=== PATIENT | male | born 1950 | race Caucasian/White ===

== ENCOUNTER → 2016-08-23 | Outpatient (CLI) | payer OTHER ==
[~2016-08-23] MED LIST: ASPI81TA28 PO; ATOR-22 PO; CITA20TA9 PO; LISI-725 PO; OPTIRAY 320 IV PRN
--- NOTE | 2016-08-23 12:54 | DIAGNOSTIC IMAGING REPORT ---
CT SCAN OF THE PELVIS WITH IV CONTRAST CLINICAL HISTORY: Prostate cancer. COMPARISON STUDY: No priors. TECHNIQUE: Following the IV administration of 119 cc of Optiray 320, CT scan of the pelvis is performed from the pelvic inlet to the proximal femora. Images are reviewed in the axial, sagittal, and coronal planes. IV contrast was administered without complication CT DOSE: 551.74 mGycm FINDINGS: The prostate gland is normal in size and heterogeneous in attenuation. No discrete mass lesion is seen. The bladder is normal as visualized. The seminal vesicles are unremarkable. Surgical clips are noted along the spermatic cord bilaterally. The visualized small bowel and colon are normal in caliber. A normal appendix is identified. There is moderate diverticulosis of the imaged left colon without CT evidence of acute diverticulitis. There is no iliac chain, pelvic sidewall, or inguinal lymphadenopathy. The iliac vessels are patent. There is mild atherosclerotic calcification of the visualized abdominal aorta. The bony pelvis is intact. No lytic or blastic bony lesions are identified. IMPRESSION: 1. The prostate gland is heterogeneous. No definite mass lesion is identified by CT. 2. There is no evidence of metastatic disease in the pelvis. Electronically signed by: Aman Rod M.D. 08/23/2016 12:52 PM Dictated Date/Time: 08/23/2016 12:47 PM
--- NOTE | 2016-08-23 13:26 | DIAGNOSTIC IMAGING REPORT ---
NUCLEAR MEDICINE WHOLE-BODY BONE SCAN CLINICAL HISTORY: Prostate carcinoma COMPARISON STUDY: CT scan the pelvis dated 08/23/2016 FINDINGS: The patient was injected with 26.1 mCi of technetium 99m MDP. Three-hour delayed whole body images were acquired. There are foci of increased activity within the left wrist, both knees, both shoulders, and both feet. There is also a focus of increased activity within the mid cervical spine posteriorly on the right. There is mild increased activity within the right hip. The overall distribution is most consistent with degenerative/arthritic/posttraumatic activity. IMPRESSION: Multiple foci of increased activity. The overall distribution is most consistent with a degenerative/arthritic/post traumatic etiology. There are no foci of increased activity viewed as suspicious for metastatic disease. Electronically signed by: Leonid Mansfield M.D. 08/23/2016 1:24 PM Dictated Date/Time: 08/23/2016 1:20 PM
== END | disposition home or self-care (01) ==
LOC: C.NUCL 09:42
PROVIDERS: ATTEND Radiology Radiation Oncology
DX: C61 Malignant neoplasm of prostate (principal); R93.7 Abnormal findings on diagnostic imaging of other parts of musculoskeletal system

== ENCOUNTER 2023-12-07 05:13 | Observation (INO) ==
--- NOTE | 2023-11-21 11:44 | PAT Medication Instructions ---
Medication Instructions Date of Service November 21, 2023 Home Medications amino acids (Amino Acid capsule) 1 cap PO UD atorvastatin 20 mg tablet 20 mg PO QAM buspirone 5 mg tablet 5 mg PO BID citalopram 20 mg tablet 20 mg PO QAM lisinopril 10 mg tablet 10 mg PO QAM ASK your surgeon for instructions amino acids (Amino Acid capsule) 1 cap PO UD DO NOT take the morning of surgery lisinopril 10 mg tablet 10 mg PO QAM Take morning of surgery With a small sip of water, OTHERWISE NOTHING TO EAT OR DRINK AFTER MIDNIGHT: atorvastatin 20 mg tablet 20 mg PO QAM buspirone 5 mg tablet 5 mg PO BID citalopram 20 mg tablet 20 mg PO QAM Take evening before surgery buspirone 5 mg tablet 5 mg PO BID Other Notes If you have any questions please call us at [phone] or [phone] or [phone] or [phone]
--- NOTE | 2023-11-23 09:48 | Anesthesiology Consultation ---
Date of Service November 23, 2023 Assessment & Plan (1) Encounter for pre-operative examination: Plan - h/o anesthesia reaction: Diffuse full body rash after prostatectomy ([facility], 2017), resolution with benadryl, unknown which medication caused reaction per patient. Discussed this with Dr. Muñoz who advised no testing is needed prior to surgery and standard approach for right TKA can be done from anesthesia standpoint. This was discussed with patient who expressed comfort with plan and denied questions or concerns. - Outpatient joint assessment: Patient is currently scheduled for inpatient pathway. If re-evaluated and patient/surgeon requests outpatient pathway, patient is acceptable candidate for outpatient joint program from anesthesia standpoint pending surgeon's office assessment of pt motivation/support/completion of same day joint program preop requirements. Chart Review Chart Review: Acceptable Risk for Surgery and Patient seen in Pre Admission Testing Teaching & Discussion Pre-Anesthesia Teaching/Discussion Notes: Instructed NPO after midnight before surgery, except medications with 15 cc of water. Medication instructions provided according to the PAT guidelines. History Surgery Operation Date: 12/07/23 12:30 Proposed Procedures p Right Total Knee Arthroplasty - Miles Whitten MD Height/Weight Height: 5 ft 6 in Weight: 89 kg Allergies Allergy/AdvReac Type Severity Reaction Status Date / Time nut - unspecified Allergy Severe Itchy Verified 11/21/23 10:33 mouth, some breathing symptoms fruit skins Allergy Severe Itchy Uncoded 11/21/23 10:33 mouth, breathing symptoms Medications Home Medications Medication Instructions Recorded Confirmed Last Taken amino acids (Amino Acid capsule) 1 cap PO UD 11/21/23 11/21/23 Unknown atorvastatin 20 mg tablet 20 mg PO QAM 11/21/23 11/21/23 Unknown buspirone 5 mg tablet 5 mg PO BID 11/21/23 11/21/23 Unknown citalopram 20 mg tablet 20 mg PO QAM 11/21/23 11/21/23 Unknown lisinopril 10 mg tablet 10 mg PO QAM 11/21/23 11/21/23 Unknown Past Medical History Medical History Anxiety History of prostate cancer 2017 "surgery only" > prostatectomy Hyperlipidemia Hypertension controlled, stable per pt Prediabetes per [facility] EMR Seasonal allergies "mild" Sensorineural hearing loss per [facility] EMR Patient denies h/o stroke, seizures, heart attack, heart failure, blood clots/DVTs or blood transfusions. Exercise / Class Metabolic Activity II 4-5 Yardwork/Stairs/Walk up hill (denies chest discomfort or shortness of breath with 1 FOS) Past Surgical History Surgical History History of anesthesia reaction Diffuse full body rash after prostatectomy ([facility], 2017), resolution with benadryl, unknown which medication caused reaction per patient History of carpal tunnel surgery of right wrist History of robot-assisted laparoscopic radical prostatectomy History of tonsillectomy and adenoidectomy Hx of blepharoplasty upper, bilateral Hx of colonoscopy Past Anesthesia History No Family Hx of Anesthesia Complications and Other (see above) History of PONV No Hx of PONV and No Hx of Motion Sickness Social History Smoking Status: Never smoker Do You Dip or Chew Tobacco: No Hx Alcohol Use: Yes Alcohol type: beer and wine alcohol intake frequency: 0-2 drinks per day Hx Substance Use: No substance use type: does not use Review of Systems Patient denies chest pain, shortness of breath, dyspnea on exertion, snoring, witnessed apneas, reflux, fever, chills, cough, wheezing, or palpitations. Physical Exam Vital Signs Vitals BP 133/75 P 63 TEMP 98 SP02 95% on RA RESP 18 Physical Patient resting comfortably in chair in no acute distress, alert and oriented, responding appropriately throughout visit Full cervical extension range of motion without pain TMD 3.5 finger breadths Mallampati Score 2 Dentition: several caps; denies chipped or loose teeth, implants or bridges Lungs: normal respiratory effort. Good air movement, clear throughout to auscultation, no adventitious breath sounds Cardiac: regular rate and rhythm, no murmurs noted Carotid arteries: negative bruit bilat Lab Results Anesthesia Preop Results Results Anesthesia Widget: WBC 5.65 K/ul (4.8-10.8) 11/23/23 Hgb 13.4 g/dl (14.0-18.0) L 11/23/23 Hct 41.5 % (42.0-52.0) L 11/23/23 Plt 250 K/uL (130-400) 11/23/23 Na 138 mmol/L (136-145) 11/23/23 K 4.3 mmol/L (3.5-5.1) 11/23/23 Cl 106 mmol/L (98-107) 11/23/23 CO2 27 mmol/L (21-32) 11/23/23 BUN 29 mg/dl (6-23) H 11/23/23 Creat 1.10 mg/dl (0.6-1.4) 11/23/23 Glucose Level 108 mg/dl (70-99(Fasting)) H 11/23/23 PT 10.8 Seconds (9.0-12.0) 11/23/23 PTT 26 Seconds (21-31) 11/23/23 INR 1.0 (0.9-1.1) 11/23/23 Blood Type B Positive 11/23/23 Antibody Screen NEGATIVE 11/23/23 Testing Electrocardiogram Date: 11/23/23 Sinus rhythm with 1st degree AV block, rate 63 bpm Chest X-Ray Date: 11/23/23 No acute process.
[2023-12-07] MEDS ORDERED: ROPIVACAINE 0.5% 5 MG/ML 30 ML VIAL ONE (06:16)
[2023-12-07] MEDS ORDERED: BUPIVACAINE 0.5 % 5 MG/1 ML PF 10ML VIAL ONE (06:16)
[2023-12-07] MEDS: ACETAMINOPHEN 500 MG TAB PO SCH ×2 (06:20→13:57)
[2023-12-07] MEDS: CeleBREX 200 MG CAP PO SCH (06:21)
[2023-12-07] MEDS: FAMOTIDINE 20 MG TAB PO SCH (06:21)
[2023-12-07] MEDS: dexAMETHasone**PF** 10 MG/ML VIAL IV SCH (06:21)
[2023-12-07] MEDS: METOCLOPRAMIDE HCL 10 MG TABLET PO SCH (06:21)
[2023-12-07] MEDS: LR 60ML/HR IV SCH (06:22)
[2023-12-07] MEDS: LR 500ML BOLUS, THEN 15ML/HR IV SCH (06:22)
[2023-12-07] MEDS ORDERED: MIDAZOLAM HCL 1 MG/ML 2ML VIAL ONE ×2 (06:34)
[2023-12-07] MEDS ORDERED: DEXAMETHASONE SOD INJ 4 MG/ML VIAL ONE (06:34)
[2023-12-07] MEDS ORDERED: ONDANSETRON INJ 2 MG/ML 2 ML VIAL ONE (06:34)
[2023-12-07] MEDS ORDERED: PROPOFOL IV EMULSION 10 MG/ML 20 ML VIAL IV ONE (06:34)
[2023-12-07] MEDS ORDERED: fentaNYL citrate PF 100 MCG/2 ML VIAL ONE (06:34)
[2023-12-07] MEDS ORDERED: LIDOCAINE 2% 2 ML VIAL/AMP(20MG/ML) INFIL ONE (06:34)
--- NOTE | 2023-12-07 06:47 | History & Physical Bridge Note ---
Date of Service December 07, 2023 History & Physical Bridge Note I have examined the patient, reviewed the History & Physical and in the interval since the performance of the History & Physical I have noted the following changes of clinical significance: no changes noted
[2023-12-07] MEDS: ceFAZolin 2000MG 2,000 MG/15 ML SYR IV SCH ×2 (07:00→15:39)
[2023-12-07] MEDS ORDERED: GLYCOPYRROLATE 0.2 MG/ML VIAL ONE (07:09)
[2023-12-07] MEDS ORDERED: ONDANSETRON INJ 2 MG/ML 2 ML VIAL IV PRN ×2 (07:14→12:18)
[2023-12-07] MEDS ORDERED: fentaNYL citrate PF 100 MCG/2 ML VIAL IV PRN (07:14)
[2023-12-07] MEDS ORDERED: ATROPINE SULFATE 0.1 MG/ML 10ML SYR IV PRN (07:14)
[2023-12-07] MEDS ORDERED: ePHEDrine sulfate 50 MG/ML AMP IV PRN (07:14)
[2023-12-07] MEDS: ROPIV 0.5% 246mg, Ketorolac 30mg, EPINEPHrine 0.5mg in NSS INFIL SCH (07:45)
[2023-12-07] MEDS: ORTHO JOINT ANESTHETIC ONE (07:45)
[2023-12-07] MEDS: TRANEXAMIC ACID 1,000 MG **IV Intra-op IV SCH (08:20)
--- NOTE | 2023-12-07 08:54 | Operative Report ---
PG Post Operative Report Pre & Post Diagnosis Operation Date: 12/07/23 07:00 Pre-Op Diagnosis: Right Knee Osteoarthritis Post-Op Diagnosis: Right Knee Osteoarthritis I identified the patient and participated in the time-out.: Yes Procedure Operation Date: 12/07/23 07:00 Actual Procedures p Right Total Knee Arthroplasty(Right) - Miles hWitten MD Surgeon Miles Whitten MD [employer]ou[employer] Gareth Russo PA-C Estimated Blood Loss 50 Findings Consistent with Post-Op Diagnosis Operative findings were advanced right knee DJD. Extensive grade 4 [id number] disease and eburnation of the anteromedial compartment. He had a fixed varus deformity to his knee. Moderate-sized joint effusion. Specimens Right knee sent for pathology. Anesthesia Type Spinal MAC Complications none Disposition Accompanied Patient To Recovery: No Indications Patient is a 73-year-old very active gentleman has had a long history of right knee pain discomfort describes gotten worse over time. Is been through extensive conservative treatment over the years which became less successful. X-rays show advanced right knee medial compartment arthritis. He elected proceed with a right total knee arthroplasty. Description of Procedure Operative implants consist of: 1. Biomet Vanguard size 70 right posterior stabilized femoral component. 2. Biomet size 71 tibial tray. 3. 12 mm posterior stabilized polyethylene insert. 4. 31 x 8 all poly patella. The patient was taken the op room, identified, placed on the operating table in the supine position. All contact areas were appropriately padded. IV antibiotics tried by anesthesia team. A spinal anesthetic and abductor canal block had been divided in the holding area. Right thigh-high tourniquet was then placed. The right lower extremities then prepped and draped in usual sterile fashion. The right leg was elevated and exsanguinated with use of an Esmarch and the tourniquet was placed at 300 mmHg. An anterior approach to the right knee was then performed through a longitudinal incision centered over the patella. Sharp dissection was carried through subcutaneous tissue down the extensor mechanism. A medial parapatellar arthrotomy incision was made. Some subperiosteal dissection was carried out medially. The fat pad was dissected from Neath patella tendon. The lateral patellofemoral ligament was released. Patella was subluxated laterally and the knee was flexed. The osteophytes taken on distal femur. The ACL and PCL were then released in the distal femur and the tibia subluxated anteriorly. The external tibial alignment jig was then placed in the interface the tibia and adjusted 14 mm medially. Proximal tibial cut was made removed by millimeter bone from most deficient aspect medial tibial plateau. Some osteophytes taken off medial and posterior medially. The tibia was sized to a size 71. Attention drawn the femur. The distal femur examined the sharp drill. Intramedullary canal was suction. A right 6 degree valgus cutting guide was placed through the distal femoral cutting block was pinned in place. Distal femoral cut was made to take an additional 3 mm bone off distal femur. The femur was then sized to a size 70. We downsize this almost an entire size due to the narrow medial and lateral dimensions of the femur. The AP cutting block was then pinned parallel to the epicondylar axis which was 3 degrees of external rotation. The anterior cut, anterior chamfer, posterior cut, posterior chamfer cuts were made. The box cutting guide was placed in the just slight lateral and the box cut was made. The knee was flexed. The remnants of the medial and lateral menisci were excised. The osteophytes taken off the posterior aspect the femur. A trial femoral component was placed through the tibial tray was pinned Luh external rotation and the drill and stem punch used to create defect in proximal tibia for the tibial tray. The knee was then trialed and the 12 mm insert fit most appropriately. Attention drawn the patella. The patella was cleaned of all soft tissues. Patella thickness measured 23 mm in thickness was cut down to 15. Was sized to a size 31 patella. The lug holes were drilled for 31 patella. The lateral osteophytes removed. Patella button was placed. Knee was taken through range of motion patella tracked nicely with no thumbs test. Attention drawn to placing permanent components. All trial components were removed. Bone plug was placed into this femur limit blood loss. A double batch Palacos G cement was mixed. Biomet Vanguard size 70 right Po stabilized femoral component, size 71 tibial tray, a 12 mm posterior stabilized polyethylene insert, and a 31 x 8 all poly patella then cemented in place. The knee was brought out into full extension till cement hardened. Final cement check was then performed. Pericapsular tissues were injected with total 100 cc of orthopedic joint mix. The patient did receive 1 g tranexamic acid. The tourniquet was then let down for final tourniquet time 59 minutes. Hemostasis assured use electrocautery. Extensor Meclomen closed with combination 1 PDS suture #1 Vicryl suture in a [id number] fashion. Extensor Meclomen checked found to be intact and subcutaneous tissue then closed with 2 Dexon suture in a buried interrupted fashion skin was closed skin paco. Leg was then cleaned and dried and a sterile dressing with Xeroform, 4 fours, sterile cast padding, Issac bandage were applied. Patient then transferred to the recovery room in stable condition. Patient tolerated procedure well and there were no complications. Gareth Russo, my physician assistant maintenance manager, was present for the entire procedure. His assistance was essential and required for appropriate patient positioning, pre pping and draping, surgical exposure, performing the technical details of the operation, placement the implants, closure of the wound, and placement of the sterile bandage. I attest to the content of the Intraoperative Record and any orders documented therein. Any exceptions are noted below.
--- NOTE | 2023-12-07 09:55 | XRay Report ---
XR knee RT 1 or 2V routine HISTORY: 73 years-old Male Surgical Post Op right knee arthroplasty COMPARISON: None TECHNIQUE: 2 views of the right knee FINDINGS: Total joint arthroplasty with patellar resurfacing. Anterior midline skin paco with expected posto perative soft tissue swelling and deep tissue air. No acute fracture or unexpected opaque foreign bod y. IMPRESSION: Total joint arthroplasty with expected postoperative changes. ACT 112: Negative or not required by law. The above report was generated using voice recognition software. It may contain grammatical, syntax o r spelling errors. Electronically signed by: Melvin Mercado M.D. 12/07/2023 9:54 AM
--- NOTE | 2023-12-07 10:10 | Anesthesiology Progress Note ---
Date of Service December 07, 2023 Anesthesia Post Procedure Vital Signs Vital Signs: Temp Pulse Pulse Resp BP Pulse Ox O2 Del Method 12/07/23 10:05 61 14 129/77 94 Room Air 12/07/23 09:55 60 13 117/95 95 Room Air 12/07/23 09:45 67 13 120/97 95 Room Air 12/07/23 09:35 78 17 105/83 95 Room Air 12/07/23 09:25 75 12 129/76 95 Room Air 12/07/23 09:15 72 14 153/92 H 98 Oxymask 12/07/23 09:05 75 12 138/83 97 Oxymask 12/07/23 08:55 89 12 140/85 94 Oxymask 12/07/23 08:48 97.2 F L 94 H 15 131/82 95 Oxymask 12/07/23 06:01 97.7 F 65 20 96 Room Air O2 Flow Rate 12/07/23 10:05 12/07/23 09:55 12/07/23 09:45 12/07/23 09:35 12/07/23 09:25 12/07/23 09:15 7 12/07/23 09:05 7 12/07/23 08:55 7 12/07/23 08:48 7 12/07/23 06:01 Transfer of Care Handoff Completed per policy Notes Mental Status: alert / awake / arousable and participated in evaluation Patient Amnestic to Procedure: Yes Nausea / Vomiting: adequately controlled Pain: adequately controlled Airway Patency, RR, SpO2: stable & adequate BP & HR: stable & adequate Hydration State: stable & adequate Neuraxial Anesthesia: was administered and sensory block is resolving Anesthetic Complications: no major complications apparent and Pt Satisfied with anesthetic care
[2023-12-07] MEDS ORDERED: NON-FORMULARY MEDICATION (Amino Acids [Amino Acid] Capsule) PO SCH (12:18)
[2023-12-07] MEDS ORDERED: ALUMINUM/MAGNESIUM SUSP 30 ML UDC PO PRN (12:18)
[2023-12-07] MEDS ORDERED: NALOXONE HCL 0.4 MG/1 ML VIAL/CARP IV PRN (12:18)
[2023-12-07] MEDS ORDERED: MAGNESIUM HYDROXIDE SUSP 30 ML UDC PO PRN (12:18)
[2023-12-07] MEDS ORDERED: TAMSULOSIN HCL 0.4 MG CAP PO PRN (12:18)
[2023-12-07] MEDS ORDERED: HYDROmorphone HCL 2 MG TAB PO PRN (12:18)
[2023-12-07] MEDS ORDERED: bisacodyL 10 MG SUPP PR PRN (12:18)
[2023-12-07] MEDS ORDERED: HYDROmorphone INJ 0.5 MG/0.5 ML SYR IV PRN (12:18)
[2023-12-07] MEDS ORDERED: METOCLOPRAMIDE HCL INJ 5 MG/ML 2 ML VIAL IV PRN (12:18)
[2023-12-07] MEDS: SODIUM CHLORIDE 0.9% 1,000 ML IV SCH (13:49)
[2023-12-07] MEDS: CITALOPRAM 20 MG TAB PO SCH (13:53)
[2023-12-07] MEDS: ATORVASTATIN 20 MG TAB PO SCH (13:53)
[2023-12-07] MEDS: busPIRone 5 MG TAB PO SCH (13:53)
[2023-12-07] MEDS: SENNA 8.6 MG TAB PO SCH ×2 (13:54→20:17)
[2023-12-07] MEDS: DOCUSATE SODIUM 100 MG CAP PO SCH (13:54)
[2023-12-07] MEDS: MULTIVITAMIN TAB PO SCH (13:54)
[2023-12-07] MEDS: ASPIRIN 81 MG ECTAB PO SCH (13:56)
[2023-12-07] MEDS: lisinopril 10 MG TAB PO SCH (13:58)
[2023-12-07] MEDS: KETOROLAC TROMETHAMINE 15 MG/ML VIAL IV SCH (14:00)
[2023-12-07] MEDS: TRANEXAMIC ACID / 0.7% NACL 1,000 MG/100 ML BAG IV SCH (15:45)
[2023-12-07] MEDS: COUGH DROP (SUGAR FREE) LOZ 24 LOZ/1 BOX BUCCAL ONE (16:27)
[2023-12-07] MEDS: ASCORBIC ACID 500 MG TAB PO SCH (17:16)
--- OUTSIDE RECORDS SUMMARY | 2023-12-07 20:54 | External Medical Summary | Summary of Care ---
Author Name Unknown Organization [facility] Address [address] [facility] [place] [address] Phone [phone] Care Team Providers Care Reduction Furnace Operator Helper Name Role Phone Abhishek Dumont MD Primary Care Provider + Reason for Visit * Reason Comments Physical-Exam Encounter Details Date Type Department Care Team (Late st Contact Info) Description 11/27/2023 10:00 AM EDT Office Visit General Internal Medicine [address] [place] [address] [place] [address] Abhishek Dumont MD [address] [facility] [place] [address] HTN, goal below 130/80*; Mixed hyperlipidemia; Prediabetes; Chronic pain of right knee; Generalized anxiety disorder; H/O prostate cancer Allergies Active Allergy Reactions Criticality Noted Date Comments Food (See Comments) 10/12/2023 Raw apples- itchy tongue/lips Other Allergy (See Comments) Edema face/lips/tongue,Other (Please comment) High 08/05/2016 Feels itchy throat with most nuts. documented as of this encounter (statuses as of 11/27/2023) Medications Medication Sig Dispensed Refills Start Date End Date Status ibuprofen (MOTRIN) 200 MG Tablet Take 1 Tablet by mouth every 4 hours as needed for Pain. 0 Active loratadine (CLARITIN) 10 MG Tablet Take 1 Tab by mouth daily. 30 Tab 6 03/27/2020 Active Lisinopril 10 MG Oral Tablet (Prinivil)Indication s:Essential hypertension with goal blood pressure less than 140/90 TAKE ONE TABLET BY MOUTH EVERY DAY 90 Tablet 1 07/10/2023 4 Active Citalopram Hydrobromide 20 MG Oral Tablet (CeleXA)Indications: Generalized anxiety disorder TAKE ONE TABLET BY MOUTH EVERY DAY 90 Tablet 1 07/10/2023 4 Active busPIRone HCl 5 MG Oral Tablet (Buspar)Indications: Generalized anxiety disorder TAKE ONE TABLET BY MOUTH IN THE MORNING AND ONE TABLET BEFORE BEDTIME 180 Tablet 1 10/29/2023 5 Active Atorvastatin Calcium 40 MG Oral Tablet (Lipitor)Indications :Mixed hyperlipidemia Take 1 Tablet by mouth every night at bedtime. 90 Tablet 3 11/27/2023 Active Erythromycin 5 MG/GM Ophthalmic Ointment Use 4 times per day for 2 weeks and then at bedtime for 1 month 3.5 g 3 05/03/2023 4 Discontinue d(Medicatio n List Clean Up) Atorvastatin Calcium 20 MG Oral Tablet (Lipitor)Indications :Dyslipidemia, goal LDL below 130 TAKE ONE TABLET BY MOUTH EVERY DAY 90 Tablet 1 07/10/2023 4 Discontinue d(Patient preference/ discontinua tion) documented as of this encounter (statuses as of 11/27/2023) Active Problems Problem Noted Date Diagnosed Date Prediabetes 05/21/2018 Overview: Per Prediabetes protocol #1 H/O prostate cancer 05/05/2017 Overview: tx surgery 3.2016 Mixed hyperlipidemia 04/23/2014 Generalized anxiety disorder 04/23/2014 Allergic rhinitis 01/21/2009 Sensorineural hearing loss, bilateral 01/21/2009 HTN, goal below 130/80 10/30/2008 documented as of this encounter (statuses as of 11/27/2023) Resolved Problems Problem Noted Date Diagnosed Date Resolved Date Prostate cancer 11/14/2017 03/28/2018 Dyslipidemia, goal LDL below 130 03/19/2010 04/23/2014 Subjective tinnitus 01/21/2009 04/04/20 19 documented as of this encounter (statuses as of 11/27/2023) Immunizations Name Administration Dates Next Due COVID-19, MRNA-LNP, 23-24, P F, 30 MCG/0.3 mL, 12 YRS AND ABOVE, IM (PFIZER-Comirnaty) 07/14/2023 Pneumococcal Conjugate Vacc, 13 Valent (Prevnar) 05/05/2016 Pneumococcal Polysaccharide PPV23 (Pneumovax) 05/05/2017 Season Influenza, Quad, PF, Adjuvanted, 65+ Yrs, IM (FLUAD) 06/01/2021 Seasonal Influenza, PF, 6 M & above, IM , (FluLaval or Fluzone) 06/03/2020,06/06/2019,05/05/2017 Seasonal Influenza, Quadriva lent Hd (Fluzone Hd) 08/02/2022 Seasonal Influenza, Quadriva lent, No Preserve, IM 05/05/2016 Seasonal Influenza, Split, I IV3, With Preserve, Inj 04/24/2015,04/23/2014,06/14/2010 TD, Preservative Free 04/04/2019 TDAP (age 11 and older)(Adacel) 10/30/2008 Varicella Zoster Vaccine (Adult) 03/06/2013 Zoster Vaccine Recombinant (Shingrix) 06/11/2019 ,04/04/2019 documented as of this encounter Social History Tobacco Use Types Packs/Day Years Used Date Smoking Tobacco: Never Smokeless Tobacco: Never Comments:no passive smoke Alcohol Use Standard Drinks/Week Comments Yes 3.3 (1 standard drink = 0.6 oz p ure alcohol) occ PHQ-2 Answer Date Recorded PHQ Adult Total Score 2 11/24/2022 Hunger Vital Sign Answer Date Recorded Within the past 12 months, y ou worried that your food would run out before you got the money to buy more. Never true 11/25/19 23 Within the past 12 months, t he food you bought just didn't last and you didn't have money to get more. Never true 11/24/2022 Sex and Gender Information Value Date Recorded Sex Assigned at Male 04/04/2019 8:19 AM EDT Gender Identity Male 04/04/2019 8:19 AM EDT Sexual Orientation Straight 04/04/2019 8: 19 AM EDT Job Start Date Occupation Industry Not on file Not on file Not on file documented as of this encounter Last Filed Vital Signs Vital Sign Reading Time Taken Comments Blood Pressure 132/74 11/27/2023 9:50 AM EDT Pulse 57 11/27/2023 9:50 AM EDT Temperature 36.1 C (97 F) 11/27/2023 9:50 AM EDT Respiratory Rate 16 11/27/2023 9:50 AM EDT Oxygen Saturation 98% 11/27/2023 9:50 AM EDT Inhaled Oxygen Concentration - - Weight 87.9 kg (193 lb 11.2 oz) 11/27/2023 9:50 AM EDT Height - - Body Mass Index 30.8 10/12/2023 12:20 PM EST documented in this encounter Functional Status Functional Status Response Date of Assess ment Are you deaf or do you have serious difficulty h earing? No 10/17/2016 Are you blind or do you have serious difficulty seeing, even when wearing glasses? No 10/17/2016 Do you have serious difficul ty walking or climbing stairs? (5 years old or older) No 10/17/2016 Do you have difficulty dress ing or bathing? (5 years old or older) No 10/17/2016 Because of a physical, menta l, or emotional condition, do you have difficulty doing errands alone such as visiting a doctor s office or shopping? (15 years old or older) No 10/18/19 17 Cognitive Status Response Date of Assessm ent Because of a physical, menta l, or emotional condition, do you have serious difficulty concentrating, remembering, or making decisions? (5 years old or older) No 10/17/2016 documented as of this encounter Progress Notes * Abhishek Dumont MD - 11/27/2023 10:12 AM EDT Chief Complaint Patient presents with Physical-Exam SUBJECTIVE: Rony Tee is a 73 year old male with PMH as below who presents for follow up predm, htn, lipids, anxiety. No cp, sob, griffin. Mood and anxiety controlled. Diet stable having right tkr next week. Non/v/d working on diet Patient Active Problem List Diagnosis Code HTN, goal below 130/80 I10 Allergic rhinitis J30.9 Sensorineural hearing loss, bilateral H90.3 Mixed hyperlipidemia E78.2 Generalized anxiety disorder F41.1 H/O prostate cancer Z85.46 Prediabetes R73.03 Current Outpatient Medications Medication Sig Dispense Refill ibuprofen (MOTRIN) 200 MG Tablet Take 1 Tablet by mouth every 4 hours as needed for Pain. loratadine (CLARITIN) 10 MG Tablet Take 1 Tab by mouth daily. 30 Tab 6 Lisinopril 10 MG Oral Tablet (Prinivil) TAKE ONE TABLET BY MOUTH EVERY DAY 90 Tablet 1 Citalopram Hydrobromide 20 MG Oral Tablet (CeleXA) TAKE ONE TABLET BY MOUTH EVERY DAY 90 Tablet 1 busPIRone HCl 5 MG Oral Tablet (Buspar) TAKE ONE TABLET BY MOUTH IN THE MORNING AND ONE TABLET BEFORE BEDTIME 180 Tablet 1 Atorvastatin Calcium 40 MG Oral Tablet (Lipitor) Take 1 Tablet by mouth every night at bedtime. 90 Tablet 3 No current facility-administered medications for this visit. Review of patient's allergies indicates: Allergen Reactions Other Allergy (See Comments) Edema face/lips/tongue and Other (Please comment) Feels itchy throat with most nuts. Food (See Comments) Raw apples- itchy tongue/lips There are no preventive care reminders to display for this patient. ROS: CONSTITUTIONAL: No change in weight, No weakness, and No fevers, sweats, or chills EYE: No recent significant change in vision, No eye pain, redness, discharge, and No diplopia EARS: No ear pain, No drainage, No tinnitus or vertigo, and No recent change in hearing PULMONARY: No cough, sputum, or hemoptysis, No wheezing, No rales, No shortness of breath, and No recent change in breathing CARDIOVASCULAR: No chest pain, No shortness of breath, No dyspnea on exertion, No orthopnea, No paroxysmal nocturnal dyspnea, No edema, No palpitations, and No syncope ALL OTHER SYSTEMS NEGATIVE I reviewed social, PMH, PSH, and family history and updated where needed. Social History Socioeconomic History Marital status: Spouse name: madi Number of children: 1 Years of education: Not on file Highest education level: Not on file Occupational History Occupation: [employer]. Employer: [employer] Comment: [place] Occupation: retired Tobacco Use Smoking status: Never Smokeless tobacco: Never Tobacco comments: no passive smoke Vaping Use Vaping Use: Never used Substance and Sexual Activity Alcohol use: Yes Alcohol/week: 3.3 standard drinks of alcohol Types: 4 12 oz of beer per week Comment: occ Drug use: No Sexual activity: Yes Partners: Female Other Topics Concern Not on file Social History Narrative Not on file Social Determinants of Health Financial Resource Strain: Not on file Food Insecurity: No Food Insecurity (11/24/2022) Hunger Vital Sign Worried About Running Out of Food in the Last Year: Never true Ran Out of Food in the Last Year: Never true Transportation Needs: Not on file Physical Activity: Not on file Stress: Not on file Social Connections: Not on file Intimate Partner Violence: Not on file Housing Stability: Not on file Past Medical History: Diagnosis Date Allergic rhinitis 01/21/2009 Anxiety state, unspecified Anxiety State Unspecified Dyslipidemia, goal LDL below 130 03/19/2010 H/O prostate cancer 05/05/2017 tx surgery 3.2015 HTN, goal below 130/80 10/30/2008 HTN, goal below 140/90 10/30/2008 Sensorineural hearing loss, bilateral 01/21/2009 Subjective tinnitus 01/21/2009 Past Surgical History: Procedure Laterality Date COLONOSCOPY 2005 neg COLONOSCOPY, DIAGNOSTIC (RECTUM) 09/06/2016 adenomatous polyps, diverticulosis, repeat 3 yrs/COLONOSCOPY FLEXIBLE PROXIMAL DIAGNOSTIC performedby Kaushik Cox MD at [facility] COLONOSCOPY, DIAGNOSTIC (RECTUM) 05/05/2020 adenomatous & serrated adenomatous polyps, diverticulosis, repeat 3 yrs / COLONOSCOPY FLEXIBLE PROXIMAL DIAGNOSTIC performed by Kaushik Cox MD at [facility] COLONOSCOPY, DIAGNOSTIC (RECTUM) 10/12/2023 COLONOSCOPY FLEXIBLE PROXIMAL DIAGNOSTIC performed by Kaushik Cox MD at [facility] INFORMATION left carpal tunnel HI BLEPHAROPLASTY UPPER EYELID W/EXCESSIVE SKIN Bilateral 05/03/2023 Dr. Trammell RADICAL PROSTATE REMOVAL, W/NODES N/A 10/17/2016 ROBOTIC PROSTATECTOMY RETROPUBIC WITH PELVIC LYMPHADENECTOMY performed by Bill Vuong MD at [facility] REMOVAL OF TONSILS, UNDER AGE 12 Family History Problem Relation Age of Onset Lung Disorder Mother COPD No Past Hx Father stroke , kidney ?? OBJECTIVE: PHYSICAL EXAM: BP 132/74 | Pulse 57 | Temp 36.1 C (97 F) (Tympanic) | Resp 16 | Wt 87.9 kg (193 lb 11.2 oz) | SpO2 98% | BMI 30.80 kg/m | BSA 2.03 m General: alert, healthy, and no distress Head: Normocephalic, No masses, lesions, tenderness or abnormalities Eye Exam: conjunctiva are pink and non-injected, sclera clear Ears: External ears normal, Canals clear, TM's Normal Heart: regular rate & rhythm, no murmur, no gallops, PMI non-displaced, S-1 normal, and S-2 normal Lungs: normal respiratory rate and rhythm, lungs clear to auscultation Abdomen: obese, soft n/t, n/d Psych: normal affect, no flight of ideas or tangential thought, good eye contact, no pressured speech ASSESSMENT: I10 HTN, goal below 130/80 (primary encounter diagnosis) E78.2 Mixed hyperlipidemia R73.03 Prediabetes M25.561,G89.29 Chronic pain of right knee F41.1 Generalized anxiety disorder Z85.46 H/O prostate cancer PLAN: HTN, goal below 130/80 (Primary) Cont lisinopril Mixed hyperlipidemia - COMPREHENSIVE METABOLIC PANEL; Future; Expected date: 11/12/2024 - LIPID PANEL WITH DIRECT LDL IF TG IS HIGH; Future; Expected date: 11/12/2024 - Atorvastatin Calcium 40 MG Oral Tablet (Lipitor); Take 1 Tablet by mouth every night at bedtime. - LIPID PANEL WITH DIRECT LDL IF TG IS HIGH; Future; Expected date: 12/27/2023 - HEPATIC FUNCTION PANEL; Future; Expected date: 12/27/2023 Increase lipitor to 40 mg based on asvcd. The potential side effects of this medication have been discussed with the patient. Call if any significant problems with these are experienced. Labs 1 month Prediabetes - HEMOGLOBIN A1C; Future; Expected date: 11/12/2024 Discussed last labs, diet changes, he will do as if not likely will develop dm Chronic pain of right knee Await surgery Generalized anxiety disorder Cont buspar, celexa H/O prostate cancer - PSA; Future; Expected date: 11/12/2024 Follow Up: Return in about 1 year (around 11/26/2024), or if symptoms worsen or fail to improve, forFasting Labs 2-5 Days Before Next Visit. | For: Fasting Labs 2-5 Days Before Next Visit Abhishek Dumont MD documented in this encounter Nursing Notes * Sanjana Oswald LPN - 11/27/2023 9:49 AM EDT Rony Tee presents for annual physical exam. Medications & HM reviewed. Doing well, no problems or concerns. Having a knee replacement next week. He's had all of his preoptesting done. documented in this encounter Plan of Treatment Upcoming Encounters Date Type Department Care Team (Late st Contact Info) Description 11/26/2024 9:20 AM EDT Office Visit General Internal Medicine [address] [place] [address] [facility] [place], [place] [address] Abhishek Dumont MD [address] [facility] [place] [address] Scheduled Orders Name Type Priority Associated Diagnoses Orde r Schedule COMPREHENSIVE METABOLIC PANEL Lab Routine Mixed hyperlipidemia Expected: 11/12/2024 (Approximate), Expires: 11/26/2024 LIPID PANEL WITH DIRECT LDL IF TG IS HIGH Lab Routine Mixed hyperlipidemia Expected: 11/12/2024, Expires: 11/26/2024 PSA Lab Routine H/O prostate cancer Expected: 11/12/2024 (Approximate), Expires: 11/26/2024 HEMOGLOBIN A1C Lab Routine Prediabetes Expected: 11/12/2024 (Approximate), Expires: 11/26/2024 LIPID PANEL WITH DIRECT LDL IF TG IS HIGH Lab Routine Mixed hyperlipidemia Expected: 12/27/2023, Expires: 11/26/2024 HEPATIC FUNCTION PANEL Lab Routine Mixed hyperlipidemia Expected: 12/27/2023 (Approximate), Expires: 11/26/2024 Health Maintenance Due Date Last Done Comments Influenza Vaccine (FLU shot) (Season Ended) 2024 08/02/2022, 06/01/2021, 06/03/2020, Additional history exists GFR 11/22/2024 11/23/2023, 11/12, 07/15/2021, Additional history exists HbA1c 11/22/2024 11/23/2023, 11/12, 07/05/2021, Additional history exists Depression Screening 11/26/2024 11/27/2023 Albumin/Creatinine Ratio 11/29/2025 11/29/2022, 04/15 COLONOSCOPY-EVERY 3 YRS AGES 18-100 10/11/2026 10/12/2023, 10/12/2023, 05/05/2020, Additional history exists Lipid Panel 11/22/2028 11/23/2023, 11/12, 07/15/2021, Additional history exists DTaP,Tdap,and Td Vaccines (3 - Td or Tdap) 04/04/2029 04/04/2019, 10/30/2008 Pneumococcal Vaccine: 65+ Years Completed 05/05/2017, 05/05/2016 Zoster Vaccines Completed 06/11/2019, 03/15, 03/06/2013 COVID-19 Vaccine Completed 07/14/2023 GARDASIL-HPV IMMUNIZATION SERIES Aged Out No longer eligible based on patient's age to complete this topic Hepatitis B Aged Out No longer eligi ble based on patient's age to complete this topic MENINGOCOCCAL (MENACTRA/MENVEO) Aged Out No longer eligible based on patient's age to complete this topic documented as of this encounter Medical Devices Not on filedocumented as of this encounter Visit Diagnoses Diagnosis HTN, goal below 130/80- Primary Unspecified essential hypertension Mixed hyperlipidemia Prediabetes Other abnormal glucose Chronic pain of right knee Generalized anxiety disorder H/O prostate cancer Personal history of malignant neoplasm of prostate documented in this encounter Advance Directives Latest Code Status on File Code Status Date Activated Date Inactivated Comments Full Code 10/17/2016 12:34 PM 10/19/2016 4:28 PM This o rder reflects the patients wishes and were consensually agreed upon. Care Teams Reduction Furnace Operator Helper Relationship Specialty Start Date End Date Abhishek Dumont MD [address] [place] [address] PCP - General Internal Medicine 02/21/12 documented as of this encounter"
--- OUTSIDE RECORDS SUMMARY | 2023-12-07 20:54 | External Medical Summary ---
Author Name Unknown Address Unknown Organization [id number]:[facility] [place] [address] [facility] [address] Laboratory Report Ordering Provider Test Date Status JAYSON LYNN 11/23/2023 11:08:02 Final Observation Date Value Abnormality Reference (Units ) Status HbA1C 11/23/2023 11:08:02 6.4 Above high normal 4. 0-5.6 (%) Final The use of HbA1c to monitor glycemic status is based on normal hemoglobin and HbA composition. This test should not be used in patients with abnormal hemoglobin that affects the half life of the red blood cell or the in vivo glycation rates. Glucose, estimated average 11/23/2023 11:08:02 137 Above high normal <126 (mg/dL) Fly benitez Performing Location [facility] [place] [address] [place] [address]
--- OUTSIDE RECORDS SUMMARY | 2023-12-07 20:54 | External Medical Summary ---
Author Name Unknown Address Unknown Organization [id number][place] [place] [address] [place] [address] Laboratory Report Ordering Provider Test Date Status DO SHANESHAUNA 11/23/2023 11:08:02 Final Observation Date Value Abnormality Reference (Units ) Status Triglyceride 11/23/2023 11:08:02 197 Above high normal <=174 (mg/dL) Final Triglyceride Reference Range s (mg/dL):
<150 Acceptable
150-174 Borderline high
175-499 High
>=500 Very high Cholesterol 11/23/2023 11:08:02 177 <200 (mg /dL) Final Total Cholesterol Reference Ranges (mg/dL):
<200 Desirable
200-239 Borderline high
>=240 High HDL 11/23/2023 11:08:02 47 >39 (mg/dL ) Final HDL Cholesterol Reference Ra nges (mg/dL):
>=60 High (Desirable)
<50 Low (Undesirable) For Females
<40 Low (Undesirable) For Males NON-HDL CHOLESTEROL 11/23/2023 11:08:02 130 <=159 (mg/dL) Final Non-HDL Cholesterol Referenc e Range (mg/dL):
<100 Target level for high risk ASCVD patient
<130 Optimal for general population
130-159 Near optimal for general population
160-189 Borderline High
190-219 High
>=220 Very High LDL, (calculated) 11/23/2023 11:08:02 91 <= 129 (mg/dL) Final LDL Cholesterol Reference Ra nges (mg/dL):
<70 Target level for high risk ASCVD patient
<100 Optimal for general population
100-129 Near optimal for general population
130-159 Borderline high
160-189 High
>=190 Very high Performing Location [facility] [place] [address] [facility] [place] [address]
--- OUTSIDE RECORDS SUMMARY | 2023-12-07 20:54 | External Medical Summary | Summary of Care ---
Author Name Unknown Organization [facility] Address [address] [facility] [place] [address] Phone [phone] Care Team Providers Care Lining Inserter Name Role Phone Abhishek Dumont MD Primary Care Provider + Reason for Visit * Reason Comments Outpatient Testing Encounter Details Date Type Department Care Team (Late st Contact Info) Description 11/23/2023 11:20 AM EDT Laboratory Laboratory [facility] [address] [place] [address] [place], [address] [place] [address] Prediabetes; Hypertension, unspecified type; Dyslipidemia, goal LDL below 130 Allergies Active Allergy Reactions Criticality Noted Date Comments Food (See Comments) 10/12/2023 Raw apples- itchy tongue/lips Other Allergy (See Comments) Edema face/lips/tongue,Other (Please comment) High 08/05/2016 Feels itchy throat with most nuts. documented as of this encounter (statuses as of 11/23/2023) Medications Medication Sig Dispensed Refills Start Date End Date Status ibuprofen (MOTRIN) 200 MG Tablet Take 1 Tablet by mouth every 4 hours as needed for Pain. 0 Active loratadine (CLARITIN) 10 MG Tablet Take 1 Tab by mouth daily. 30 Tab 6 03/27/2020 Active Erythromycin 5 MG/GM Ophthalmic Ointment Use 4 times per day for 2 weeks and then at bedtime for 1 month 3.5 g 3 05/03/2023 Active Additional Information Patient not taking.Reported on 10/12/2023 Lisinopril 10 MG Oral Tablet (Prinivil)Indicatio ns:Essential hypertension with goal blood pressure less than 140/90 TAKE ONE TABLET BY MOUTH EVERY DAY 90 Tablet 1 07/10/2023 07/09/2024 Active Citalopram Hydrobromide 20 MG Oral Tablet (CeleXA)Indications :Generalized anxiety disorder TAKE ONE TABLET BY MOUTH EVERY DAY 90 Tablet 1 07/10/2023 07/09/2024 Active Atorvastatin Calcium 20 MG Oral Tablet (Lipitor)Indication s:Dyslipidemia, goal LDL below 130 TAKE ONE TABLET BY MOUTH EVERY DAY 90 Tablet 1 07/10/2023 07/09/2024 Active busPIRone HCl 5 MG Oral Tablet (Buspar)Indications :Generalized anxiety disorder TAKE ONE TABLET BY MOUTH IN THE MORNING AND ONE TABLET BEFORE BEDTIME 180 Tablet 1 10/29/2023 10/28/2024 Active documented as of this encounter (statuses as of 11/23/2023) Active Problems Problem Noted Date Diagnosed Date Prediabetes 05/21/2018 Overview: Per Prediabetes protocol #1 H/O prostate cancer 05/05/2017 Overview: tx surgery 3.2015 Mixed hyperlipidemia 04/23/2014 Generalized anxiety disorder 04/23/2014 Allergic rhinitis 01/21/2009 Sensorineural hearing loss, bilateral 01/21/2009 HTN, goal below 130/80 10/30/2008 documented as of this encounter (statuses as of 11/23/2023) Resolved Problems Problem Noted Date Diagnosed Date Resolved Date Prostate cancer 11/14/2017 03/28/2018 Dyslipidemia, goal LDL below 130 03/19/2010 04/23/2014 Subjective tinnitus 01/21/2009 04/04/20 19 documented as of this encounter (statuses as of 11/23/2023) Immunizations Name Administration Dates Next Due COVID-19, [...] on file documented as of this encounter Functional Status Functional Status Response [...] No 10/17/2016 documented as of this encounter Plan of Treatment Upcoming Encounters Date Type Department Care Team (Late st Contact Info) Description 11/27/2023 10:00 AM EDT Office Visit General Internal Medicine [facility] [place] [facility] [place] [address] Abhishek Dumont MD [address] [facility] [place] [address] Pending Results Name Type Priority Associated Diagnoses Date /Time HEMOGLOBIN A1C Lab Routine Prediabetes 11/23/2023 11:08 AM EDT COMPREHENSIVE METABOLIC PANEL Lab Routine Hypertension, unspecified type 11/23/2023 11:08 AM EDT LIPID PANEL WITH DIRECT LDL IF TG IS HIGH Lab Routine Dyslipidemia, goal LDL below 130 11/23/2023 11:08 AM EDT Health Maintenance Due Date Last Done Comments Depression Screening 11/25/2023 11/24/2022 GFR 11/30/2023 11/29/2022, 09/2020, 07/08/2020, Additional history exists HbA1c 11/30/2023 11/29/2022, 06/15, 07/08/2020, Additional history exists Influenza Vaccine (FLU shot) (Season Ended) 2024 08/02/2022, 06/01/2021, 06/03/2020, Additional history exists Albumin/Creatinine Ratio 11/29/2025 11/29/2022, 04/15 COLONOSCOPY-EVERY 3 YRS AGES 18-100 10/11/2026 10/12/2023, 10/12/2023, 05/05/2020, Additional history exists Lipid Panel 11/30/2027 11/29/2022, 1209/2020, 07/08/2020, Additional history exists DTaP,Tdap,and Td Vaccines (3 [...] as of this encounter Visit Diagnoses Diagnosis Prediabetes Other abnormal glucose Hypertension, unspecified type Dyslipidemia, goal LDL below 130 Other and unspecified hyperlipidemia documented in this encounter Advance Directives Latest Code Status on File Code Status Date Activated Date Inactivated Comments Full Code 10/17/2016 12:34 PM 10/19/2016 4:28 PM This o rder reflects the patients wishes and were consensually agreed upon. Care Teams Lining Inserter Relationship Specialty Start Date End Date Abhishek Dumont MD [address] [address] PCP - General Internal Medicine 02/21/12 documented as of this encounter
--- OUTSIDE RECORDS SUMMARY | 2023-12-07 20:54 | External Medical Summary ---
Author Name Unknown Address Unknown Organization K[facility] [address] [place] [address] Laboratory Report Ordering Provider Test Date Status JAYSON LYNN 11/23/2023 11:08:02 Final Observation Date Value Abnormality Reference (Units ) Status PSA 11/23/2023 11:08:02 <0.02 <4.10 (ng/ mL) Final Performing Location [facility] - [address] [place] [address]
[2023-12-08 07:31] LABS: Hematocrit (blood only) 32.3 % (42.0-52.0); Hemoglobin 10.7 g/dl (14.0-18.0); Mean Corpuscular Hemoglobin 30.1 pg (25.0-34.0); Mean Corpuscular Hgb Conc 33.1 g/dL (32.0-36.0); Mean Platelet Volume 8.8 fL (9.4-12.4); Platelet Count 254 K/uL (130-400); RDW Coefficient of Variation 12.1 % (11.5-14.5); RDW Standard Deviation 40.2 fL (36.4-46.3); Red Blood Count 3.55 M/uL (4.70-6.10); White Blood Count 10.46 K/ul (4.8-10.8)
[2023-12-08 07:51] LABS: BUN Creatinine Ratio 23.4 (10-20); Calcium 8.2 mg/dl (8.6-10.3); Est GFR (African American) 66.9 ml/min; Est GFR (Non-African American) 57.7 ml/min; Potassium 4.1 mmol/L (3.5-5.1)
[2023-12-08] MEDS: dexAMETHasone 10 MG in SYRINGE 0 ML IV SCH (07:52)
--- NOTE | 2023-12-08 11:48 | Orthopedic Progress Note ---
Date of Service December 08, 2023 Assessment & Plan (1) Status post right knee replacement: Overall, he is doing quite well today with good pain control to the right knee. He will work with physical therapy later this morning to work on ambulation and range of motion exercises. He is on aspirin for DVT prophylaxis. He can be discharged home later this morning pending formal physical therapy evaluation recommendations. He will follow-up with Dr. Whitten in 2 weeks for postoperative management. Subjective . Rony was seen and evaluated this morning resting comfortably in no apparent distress. He notes that his pain is well-controlled to the right knee. He has yet to work with physical therapy this morning. He notes he has been out of bed with no significant issues. He denies any other concerns today. Review of Systems All systems reviewed & are unremarkable except as noted in HPI & below. Physical Exam . On physical examination of the right knee, dressings are clean, dry, intact. His leg is out in full extension. He has active plantarflexion and dorsiflexion of right ankle. +2 DP and PT pulses. Less than 2-second capillary refill. Normal sensation. Neurovascular intact. Results & Data Results & Data Laboratory Results . Diagnostic Findings . Postoperative x-rays of the right knee show prosthesis to be anatomical alignment with no signs of fracture complication or loosening. PG Care Time/CCT Total # of Minutes Spent Total Time Spent with Patient: Total time spent is greater than 50% in coordination of care (as documented) at patient's floor/unit and/or counseling patient: Coding Level of Care Code 86187 Post Operative Follow-Up Diagnoses Status post right knee replacement Z96.651
--- NOTE | 2023-12-08 11:50 | Discharge Summary ---
Date of Service December 08, 2023 Principal Diagnosis Same as "Discharge Diagnosis" noted below under Discharge Instructions. Discharge Exam . On physical examination of the right knee, dressings are clean, dry, intact. His leg is out in full extension. He has active plantarflexion and dorsiflexion of right ankle. +2 DP and PT pulses. Less than 2-second capillary refill. Normal sensation. Neurovascular intact. Discharge Data Procedures Performed Operation Date: 12/07/23 07:00 Actual Procedures p Right Total Knee Arthroplasty(Right) - Miles Whitten MD Ordered Studies 12/07/23 05:00 US - OR guided needle placemen Routine Hospital Course (1) Status post right knee replacement: On December 07, 2023 Rony arrived at [facility] and underwent a right total knee arthroplasty performed by Dr. Whitten with no complications. He had a spinal anesthetic. Postoperatively, he was started on aspirin for DVT prophylaxis and transferred to the general orthopedic floor in stable condition. His hospital course was uneventful. On postoperative day #1, his vital signs are stable and his pain is well-controlled. He participated well with physical therapy work on ambulation and range of motion exercises. He was then discharged home in stable condition. He will follow-up with Dr. Whitten in 2 weeks for postoperative management. PG Care Time/CCT Total # of Minutes Spent Total Time Spent with Patient: Total time spent is greater than 50% in coordination of care (as documented) at patient's floor/unit and/or counseling patient: Discharge Plan Discharge Items Patient Disposition: Home - Home Health Services Reason For Visit: Right Knee Degenerative Joint Disease Discharge Diagnosis: Right Knee Replacement Activity: Per Instructions section Weightbearing: Full weightbearing Non-emergency contact: Surgeon Call non-emergency contact if: you have any medication questions Follow-up/Referrals: Abhishek Dumont MD [Primary Care Provider] - Diet: Regular Addtl Attending Provider Instructions: ACTIVITY RECOMMENDATIONS: Physical Therapy: * You will go to physical therapy three times each week for four to six weeks after your surgery in order to regain your knee range of motion and to retrain your knee to work properly. * It is just as important to make sure you are getting your knee perfectly straight as it is to regain your knee bend. * Taking a pain pill an hour before therapy can help you have a more productive and comfortable therapy session. Home Exercise: * You were shown a series of exercises (heel props, heel slides, etc.) in the hospital. Do these exercises three to four times each day including the exercises you were shown in physical therapy. Walking: * Get up and walk several times each day. For the first four weeks, try not to stand or walk for more than one hour at a time. If you do stand or walk for more than one hour, you will not hurt anything, but your knee and leg will likely swell. * As you feel comfortable, you may change from the walker or crutches to a cane and then to independent walking. MEDICATIONS: New Medicine: * You will likely be taking one or more of these medications: 1. Dilaudid - A quick and shorter-acting pain medication. Take one to two tablets every six hours to lessen your pain. 2. Aspirin - Thins your blood to lessen the chance of forming a blood clot. * The most common side effects of pain medicine and iron are nausea and constipation. If nausea or constipation is too much of a problem or if you have any questions about your new medicines or doses, call [facility] at [phone]. We will try to help you manage these issues. "VERY IMPORTANT TO READ AND REVIEW" Pain: * The immediate post-operative period after knee replacement surgery is often quite painful. * You are given a prescription for pain medicine. You should take it, as directed, when you need it, especially before physical therapy and before going to bed. Pain that interferes with sleep is very common and can last several months. * You will likely need pain medicine for the first four to six weeks. It will not stop all of the pain. The pain will lessen and as you feel better, you may change to milder pain medicine such as Tylenol. * The most common side effects of pain medicine are nausea and constipation, so don't take more than you need. SPECIAL CARE INSTRUCTIONS: TEDs/Elastic Stockings: * The white elastic stockings help limit swelling and prevent blood clots from forming in your legs. The more you wear them, the more they work. * Wear them for six weeks after knee replacement surgery and four weeks after partial knee replacement. Incision Site Care: * Remove dressing postoperative day 2 and then shower. Keep direct shower pressure off the incision site. * After showering, cover paco with dry gauze and change daily or more frequently if the dressing is getting saturated with drainage. * Use the ROSSY stockings to hold dressing in place. DO NOT apply tape on the skin. * May completely stop using bandage if wound is dry and no drainage * Paco are removed between 2 and 3 weeks post-op. If your follow-up appointment is made before 2 weeks, please have your appointment re- scheduled. It is too early to remove the paco. Prevention of Infection: * Take antibiotics one hour before any dental cleaning, dental work, urological procedure, gastrointestinal procedure or any invasive surgery in order to prevent your new joint from getting infected. * You may get the antibiotics from the doctor performing the procedure or you may call our office at [phone] before and we will call in a prescription to the pharmacy of your choice. Things to Watch For: * Drainage from the incision site that occurs more than one week after your surgery. * Severely increased knee/leg pain or swelling. * Increased redness at the incision site. * Fever above 102 degrees Fahrenheit. * Unusual chest pain or shortness of breath. * Unusual pain or burning with urination. Call [facility] at [phone] with any of the above problems or if you have any questions about your medicines or recovery. FOLLOW UP VISIT: Make an appointment to see your doctor for approximately two weeks after surgery for a progress check and staple removal by calling the office at [phone]. Pending Studies at Discharge: No Stand-Alone Forms: My [facility] Inbox, Smoking Cessation Medications and DC Order Prescriptions: Continued (DME) Wheeled Walker Misc See Rx Instructions .MEDSUPPLY Qty: 1 0RF Rx Instructions: As directed hydromorphone 2 mg tablet 2 - 4 mg PO Q6 PRN (Reason: pain) Qty: 40 0RF Rx Instructions: Take as needed for pain ondansetron 4 mg tablet,disintegrating 4 mg PO Q8 PRN (Reason: nausea) Qty: 20 1RF Rx Instructions: Take as needed for nausea ketorolac 10 mg tablet 10 mg PO Q6 5 Days Qty: 20 0RF Rx Instructions: Take 4 times per day with food for 5 days to lessen pain and swelling. sennosides [Senokot] 8.6 mg tablet 8.6 mg PO BID 14 Days Qty: 28 0RF Rx Instructions: Take two times a day to prevent/treat constipation acetaminophen [Tylenol Extra Strength] 500 mg tablet 1,000 mg PO TID 30 Days Qty: 180 0RF Rx Instructions: Take 3 times per day to lessen pain. aspirin [Claude Low Dose Aspirin] 81 mg tablet,delayed release (DR/EC) 81 mg PO BID 45 Days Qty: 90 0RF Rx Instructions: Take to prevent blood clots. cefadroxil 500 mg capsule 500 mg PO BID 7 Days Qty: 14 0RF Rx Instructions: Take 1 cap twice a day to prevent infection tamsulosin [Flomax] 0.4 mg capsule 0.4 mg PO DAILY PRN (Reason: prevent urinary retnetion.) Qty: 7 0RF Rx Instructions: Begin night BEFORE surgery to prevent urinary retention buspirone 5 mg tablet 5 mg PO BID Amino Acid Capsule 1 cap PO UD Patient Comments: per Dr. Whitten's orders atorvastatin 20 mg tablet 20 mg PO QAM citalopram 20 mg tablet 20 mg PO QAM lisinopril 10 mg tablet 10 mg PO QAM Krames/Other Patient Handouts: DVT Post Op Prevention Admission Data Admit Date/Time: 12/07/23 08:47 Attending Provider: Miles Whitten Admit Provider: Miles Whitten Primary Care Provider: Abhishek Dumont Other Providers: [facility],Home Health Other Interventions: Discharge Summary Assessment (RN) Last Done: 12/08/23 09:15
== END 2023-12-08 11:12 | disposition home or self-care (01) ==
LOC: PACUINP 05:13 → ASU 05:13 → 3E 13:29